=== PATIENT | female | born 1980 | race Caucasian/White ===

== ENCOUNTER 2024-10-17 13:30 | Emergency (ER) | payer OTHER, MEDICAID, SELFPAY ==
--- NOTE | ~2024-10-17 | CT_ITS ---
CLINICAL INDICATION: Remote history of a fall. Left upper quadrant abdominal pain COMPARISON: . TECHNIQUE: Multiple contiguous axial images of the abdomen and pelvis were performed following the ad ministration of with 100 mL Omnipaque-350 intravenous contrast The dose-length product (DLP) was 225.83 mGy-cm. Automated exposure control and iterative reconstruction technique were employed. FINDINGS/OBSERVATIONS: Visualized lower thorax: The bilateral lung bases are clear. The heart is of normal size, without pericardial effusion. Small hiatal hernia is present. Liver: The liver demonstrates homogeneous enhancement and is not enlarged. Gallbladder and biliary system: The gallbladder is only minimally distended, and otherwise unremarkable. Pancreas: The pancreas enhances homogeneously without ductal dilatation. Spleen: The spleen enhances homogeneously and is not enlarged. Kidneys: The bilateral kidneys enhance symmetrically without hydronephrosis or renal calculi. Adrenal glands: Unremarkable. Gastrointestinal tract: Fecal stasis within the colon. Appendix: The air-filled appendix is of normal caliber (axial series, images 118 through 132) Vasculature: Unremarkable. Lymph nodes: No pathologically enlarged or morphologically suspicious lymph nodes within the retroperitoneum or at the root of the mesentery. Pelvic structures: The bladder is distended, and otherwise unremarkable. The uterus is anteverted and anteflexed. Body wall and musculoskeletal: Small fat-containing umbilical hernia. No significant degenerative disease within the lower thoracic or lumbosacral spine. IMPRESSION: No acute pathology within the lower chest, abdomen or pelvis, as detailed above. Reviewed, dictated and finalized at location A. IMPRESSION: No acute pathology within the lower chest, abdomen or pelvis, as detailed above .
--- NOTE | ~2024-10-17 | XR_ITS ---
XR chest 2V Ordering provider: Rhett Patino MD History: 43 years Female with . mid sternal chest pain . Comparison: None. FINDINGS: MEDIASTINUM: The cardiac silhouette is not enlarged. LUNGS: No infiltrates, effusions or pneumothorax. OTHER: No free air under the diaphragm. Degenerative changes of the spine. IMPRESSION: No acute cardiopulmonary pathology. Reviewed, dictated and finalized at location A.
[2024-10-17 13:37] VITALS: BP 105/74; PULSE 70; RESP 14; TEMP 36.6; O2SAT 99
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
--- OUTSIDE RECORDS SUMMARY | 2024-10-17 13:46 | XMS_ITS | Data Portability ---
Author Organization [facility], Main Office Address [address] [place] [address] Care Team Providers Care Head Of Sales Promotion Name Role Phone HARI RADFORD Primary Care Provider Assessment Encounter Date Assessment Date Assessment LastModified by Organization Details LastModified Time 07/20/2022 07/20/2022 41 yo F with - VIT D DEFICIENCY, improved - SCHIZOPHRENIA - BIPOLAR DISORDER - SMOKER CXR: 07/08/22. Annual labs: 07/08/22. D/w pt in detail about her findings, recent labs & imagines and further plan of care. Cont meds as per Psychiatrist. Diet and exercise explained. Currently smoking about 0.5 ppd. Encouraged pt to cut down and quit it. Cont f/u with Psych at [place], [place] as per schedule. Cont f/u with Gyne as per schedule. Educated pt about alarming symptoms to monitor at home. Pt has tried Chantix and Wellbutrin in the past. HM: WWE - 2020, normal as per pt. Cont f/u with Gyne as per schedule. Mammo - Never. No FH of CA. Flu - Pt declined. Tdap, Gardasil - At pharmacy/HD. F/u in 3-4 months. Annual labs in 06/24. [email or web address] Not available 07/20/2022 09:26:24 08/13/2024 08/13/2024 43 yo F with - WELL ADULT VISIT - VIT D DEFICIENCY, improved - SCHIZOPHRENIA - BIPOLAR DISORDER - SMOKER CXR: 07/08/22. Annual labs: 07/08/22. D/w pt in detail about her findings, recent labs & imagines and further plan of care. Will do routine labs, cxr. Pt declined for HCG. Cont meds as per Psychiatrist. Diet and exercise explained. Cont f/u with Psych at [place], [place] as per schedule. Cont f/u with Gyne as per schedule. Educated pt about alarming symptoms to monitor at home. Pt has tried Chantix and Wellbutrin in the past. HM: 2020, normal as per pt. 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 Mammo - Never. No FH of CA. Flu - Pt declined. Tdap, Gardasil - At pharmacy/HD. F/u in 2-3 weeks. Mammo order on next visit. Annual labs in 08/24. [email or web address] Not available 08/13/2024 14:53:25 10/16/2024 10/16/2024 43 yo F with - [...] exercise explained. Cont f/u with Psych at [place], [place] as per schedule. Cont f/u with Gyne as per schedule. Educated pt about alarming symptoms to monitor at home. Pt has tried Chantix and Wellbutrin in the past. HM: 2020, normal as per pt. 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 Mammo - Never. Ordered. Flu - Pt declined. Tdap, Gardasil - At pharmacy/HD. F/u in 1-2 weeks. Annual labs in 08/24. [email or web address] Not available 10/16/2024 14:56:35 Plan of Treatment Reminders Order Date Submit Date Provider Last Modified By Organization Details Last Modified Time Details Appointments Any 15 2024 03:45P Santosh Radford MD Not available Not available Not available Lab HbA1c (hemoglob in A1c), blood 2024 025 [email or web address] [facility] (Lab), [address] [place], [address], 08/20/2024 16:04:15 vitamin D, 25-hydrox y, total, serum [address] (Lab), [address] [place], [address], 08/20/2024 16:04:15 CBC w/ auto diff 2024 025 [facility] (Lab), [address] [place], [address], 08/20/2024 14:41:25 CMP, serum or plasma 2024 025 [facility] (Lab), [address] [place], [address], 08/20/2024 14:51:41 lipid panel, serum 2024 025 [facility] (Lab), [address] [place], [address], 08/20/2024 14:51:45 TSH, serum, reflex free T4 [address] (Lab), [address] [place], [address], 08/20/2024 16:04:14 urinalysi s complete, reflex culture 2024 025 [email or web address] [facility] (Lab), [address] [place], [address], 08/21/2024 09:34:32 Referral None recorded. Procedures None recorded. Surgeries None recorded. Imaging XR, knee, 3 view [address] [facility], [address], [address], 10/16/2024 14:54:00 XR, ribs, unilatera l, w/ PA chest [address], [address], [place], [address], 10/16/2024 14:54:00 MAMMO, screening , bilateral - Please call patient to schedule. 2024 025 [facility], [address], [facility] [address], [place], [address], 10/16/2024 16:15:28 XR, abdomen, 2 view [address], [address], [place], [address], 10/16/2024 14:54:00 XR, chest, 2 view [address], [address], [place], [address], 08/29/2024 10:27:48 Medication Orders ketorolac 30 mg/mL (1 mL) injection solution 2024 025 [email or web address] Not available 10/16/2024 14:56:38 prednison e 10 mg tablet 2024 025 [facility] [address] [place], [address], 10/16/2024 14:46:34 nicotine 21 mg/24 hr daily transderm al patch 2024 025 [facility] [address], [address] [place], [address], 10/16/2024 14:46:33 nicotine 21 mg/24 hr daily transderm al patch 2024 025 [facility] [address], [address] [place], [address], 08/13/2024 14:24:27 Patient TargetsNo targets recorded. Patient InstructionsNo instructions recorded. Reason for Referral None Reported. Results Created Date Observation Date Name Description Value Unit Range Abnormal Flag Note LastModifiedBy Organization Detail LastModifiedTime 07/09/19 23 07/08/2022 URINA LYSIS COMPL ETE/I RIS W/RFX color LIGHT- YELLOW Not Available [facility] (Lab) [address] [place], [address], 07/08/2022 14:33:13 07/09/19 23 07/08/2022 URINA LYSIS COMPL ETE/I RIS W/RFX appear TURBID abnormal Not Available [facility] (Lab) [address] [place], [address], 07/08/2022 14:33:13 07/09/19 23 07/08/2022 URINA LYSIS COMPL ETE/I RIS W/RFX specific gravity 1.012 1.001- 1.030 Not Available [facility] (Lab) [address] [place], [address], 07/08/2022 14:33:13 07/09/19 23 07/08/2022 URINA LYSIS COMPL ETE/I RIS W/RFX pH 6.0 pH_un its 5.0-9. 0 Not Available [facility] (Lab) [address] [place], [address], 07/08/2022 14:33:13 07/09/19 23 07/08/2022 URINA LYSIS COMPL ETE/I RIS W/RFX leukocytes NEGATI VE gisella/u L negati ve- Not Available [facility] (Lab) [address] [place], [address], 07/08/2022 14:33:13 07/09/19 23 07/08/2022 URINA LYSIS COMPL ETE/I RIS W/RFX nitrite NEGATI VE negati ve- Not Available [facility] (Lab) [address] [place], [address], 07/08/2022 14:33:13 07/09/19 23 07/08/2022 URINA LYSIS COMPL ETE/I RIS W/RFX protein NEGATI VE mg/dL negati ve- Not Available [facility] (Lab) [address] [place], [address], 07/08/2022 14:33:13 07/09/19 23 07/08/2022 URINA LYSIS COMPL ETE/I RIS W/RFX glucose NORMAL mg/dL normal - Not Available [facility] (Lab) [address] [place], [address], 07/08/2022 14:33:13 07/09/19 23 07/08/2022 URINA LYSIS COMPL ETE/I RIS W/RFX ketones NEGATI VE mg/dL negati ve- Not Available [facility] (Lab) [address] [place], [address], 07/08/2022 14:33:13 07/09/19 23 07/08/2022 URINA LYSIS COMPL ETE/I RIS W/RFX urobilinogen NORMAL mg/dL normal - Not Available [facility] (Lab) [address] [place], [address], 07/08/2022 14:33:13 07/09/19 23 07/08/2022 URINA LYSIS COMPL ETE/I RIS W/RFX bilirubin NEGATI VE mg/dL negati ve- Not Available [facility] (Lab) [address] [place], [address], 07/08/2022 14:33:13 07/09/19 23 07/08/2022 URINA LYSIS COMPL ETE/I RIS W/RFX blood NEGATI VE mg/dL negati ve- Not Available [facility] (Lab) [address] [place], [address], 07/08/2022 14:33:13 07/09/19 23 07/08/2022 URINA LYSIS COMPL ETE/I RIS W/RFX white blood cells 0-8 /i??h pfi?? 0-8 Not Available [facility] (Lab) [address] [place], [address], 07/08/2022 14:33:13 07/09/19 23 07/08/2022 URINA LYSIS COMPL ETE/I RIS W/RFX red blood cells 0-4 /i??h pfi?? 0-4 Not Available [facility] (Lab) [address] [place], [address], 07/08/2022 14:33:13 07/09/19 23 07/08/2022 URINA LYSIS COMPL ETE/I RIS W/RFX bacteria OCCASI ONAL abnormal Not Available [facility] (Lab) [address] [facility] [place], [address], 07/08/2022 14:33:13 07/09/19 23 07/08/2022 URINA LYSIS COMPL ETE/I RIS W/RFX mucous FEW /i??l pfi?? abnormal Not Available [facility] (Lab) [address] [facility] [place], [address], 07/08/2022 14:33:13 07/09/19 23 07/08/2022 URINA LYSIS COMPL ETE/I RIS W/RFX squamous epithelial PACKED FIELD /i??l pfi?? abnormal Not Available [facility] (Lab) [address] [facility] [place], [address], 07/08/2022 14:33:13 07/09/19 23 07/08/2022 URINA LYSIS COMPL ETE/I RIS W/RFX hyaline cast OCCASI ONAL /i??l pfi?? none seen- abnormal Not Available [facility] (Lab) [address] [place], [address], 07/08/2022 14:33:13 07/09/19 23 07/08/2022 CBC/C OMPLE TE BLD COUNT W/DIF F white blood cells 4.9 x10'3 /uL 4.2-10 .8 Not Available [facility] (Lab) [address] [place], [address], 07/08/2022 14:34:49 07/09/19 23 07/08/2022 CBC/C OMPLE TE BLD COUNT W/DIF F red blood cells 4.21 x10'6 /uL 3.80-5 .20 Not Available [facility] (Lab) [address] [place], [address], 07/08/2022 14:34:49 07/09/19 23 07/08/2022 CBC/C OMPLE TE BLD COUNT W/DIF F hemoglobin 13.3 g/dL 12.0-1 5.6 Not Available [facility] (Lab) [address] [place], [address], 07/08/2022 14:34:49 07/09/19 23 07/08/2022 CBC/C OMPLE TE BLD COUNT W/DIF F hematocrit 40.4 % 35.7-4 5.7 Not Available [facility] (Lab) [address] [place], [address], 07/08/2022 14:34:49 07/09/19 23 07/08/2022 CBC/C OMPLE TE BLD COUNT W/DIF F mean red cell volume 96.0 fL 82.0-9 9.0 Not Available [facility] (Lab) [address] [place], [address], 07/08/2022 14:34:49 07/09/19 23 07/08/2022 CBC/C OMPLE TE BLD COUNT W/DIF F mean red cell hemoglobin 31.6 pg 27.0-3 3.0 Not Available [facility] (Lab) [address] [place], [address], 07/08/2022 14:34:49 0307/08/2022 CBC/C OMPLE TE BLD COUNT W/DIF F mean RBC HGB concentratio n 32.9 g/dL 31.0-3 6.0 Not Available [facility] (Lab) [address] [place], [address], 07/08/2022 14:34:49 07/09/19 23 07/08/2022 CBC/C OMPLE TE BLD COUNT W/DIF F red cell distribution width 12.6 % 11.8-1 5.5 Not Available [facility] (Lab) [address] [place], [address], 07/08/2022 14:34:49 07/09/1907/08/2022 CBC/C OMPLE TE BLD COUNT W/DIF F platelets 185 x10'3 /uL 150-40 0 Not Available [facility] (Lab) [address] [place], [address], 07/08/2022 14:34:49 07/09/19 23 07/08/2022 CBC/C OMPLE TE BLD COUNT W/DIF F mean platelet volume 11.0 fL 9.0-12 .4 Not Available [facility] (Lab) [address] [place], [address], 07/08/2022 14:34:49 07/09/19 23 07/08/2022 CBC/C OMPLE TE BLD COUNT W/DIF F neutrophils 54.7 % 39.0-7 2.0 Not Available [facility] (Lab) [address] [place], [address], 07/08/2022 14:34:49 07/09/1907/08/2022 CBC/C OMPLE TE BLD COUNT W/DIF F lymphocytes 31.3 % 16.0-4 7.0 Not Available [facility] (Lab) [address] [place], [address], 07/08/2022 14:34:49 03/10/20 23 07/08/2022 CBC/C OMPLE TE BLD COUNT W/DIF F monocytes 7.5 % 5.0-12 .0 Not Available [facility] (Lab) [address] [place], [address], 07/08/2022 14:34:49 07/09/19 23 07/08/2022 CBC/C OMPLE TE BLD COUNT W/DIF F eosinophils 5.7 % 1.0-7. 0 Not Available [facility] (Lab) [address] [place], [address], 07/08/2022 14:34:49 07/09/19 23 07/08/2022 CBC/C OMPLE TE BLD COUNT W/DIF F basophils 0.6 % 0.0-2. 0 Not Available [facility] (Lab) [address] [place], [address], 07/08/2022 14:34:49 07/09/19 23 07/08/2022 CBC/C OMPLE TE BLD COUNT W/DIF F immature granulocytes 0.2 % 0.00-0 .50 Not Available [facility] (Lab) [address] [place], [address], 07/08/2022 14:34:49 07/09/19 23 07/08/2022 CBC/C OMPLE TE BLD COUNT W/DIF F neutrophils, absolute count 2.69 x10'3 /uL 1.5-8. 0 Not Available [facility] (Lab) [address] [place], [address], 07/08/2022 14:34:49 07/09/19 23 07/08/2022 CBC/C OMPLE TE BLD COUNT W/DIF F lymphocytes, absolute count 1.54 x10'3 /uL 1.07-3 .43 Not Available [facility] (Lab) [address] [place], [address], 07/08/2022 14:34:49 07/09/19 23 07/08/2022 CBC/C OMPLE TE BLD COUNT W/DIF F monocytes, absolute count 0.37 x10'3 /uL 0.29-0 .99 Not Available [facility] (Lab) [address] [place], [address], 07/08/2022 14:34:49 07/09/19 23 07/08/2022 CBC/C OMPLE TE BLD COUNT W/DIF F eosinophils, absolute count 0.28 x10'3 /uL 0.02-0 .53 Not Available [facility] (Lab) [address] [place], [address], 07/08/2022 14:34:49 07/09/19 23 07/08/2022 CBC/C OMPLE TE BLD COUNT W/DIF F basophils, absolute count 0.03 x10'3 /uL 0.01-0 .08 Not Available [facility] (Lab) [address] [place], [address], 07/08/2022 14:34:49 07/09/19 23 07/08/2022 CBC/C OMPLE TE BLD COUNT W/DIF F immature granulocytes ,absolute 0.01 x10'3 /uL 0.00-0 .05 Not Available [facility] (Lab) [address] [place], [address], 07/08/2022 14:34:49 07/09/19 23 07/08/2022 CBC/C OMPLE TE BLD COUNT W/DIF F nucleated red blood cells 0.0 % -0 Not Available [facility] (Lab) [address] [place], [address], 07/08/2022 14:34:49 07/09/19 23 07/08/2022 CBC/C OMPLE TE BLD COUNT W/DIF F NRBC# 0.00 x10'3 /uL Not Available [facility] (Lab) [address] [place], [address], 07/08/2022 14:34:49 07/09/1907/08/2022 HEMOG LOBIN A1C HA1C 5.0 % 4.0-6. 0 Diabe syl Scree aurea Crite michelle: <5.7% Consi stent with absen ce of diabe syl 5.7-6 .4% Consi stent with incre ased risk for diabe syl (pred iabet es) >OR=6 .5% Consi stent with diabe syl REFER ENCE: Diabe syl Care 2016, 39( ppl.1 ):s13 -s22 Not Available [facility] (Lab) [address] [place], [address], 07/08/2022 15:14:37 07/09/19 23 07/08/2022 COMPR EHENS ARMANDO METAB OLIC PANEL sodium 136 mmol/ L 137-14 5 low Not Available [facility] (Lab) [address] [place], [address], 07/08/2022 16:17:39 07/09/19 23 07/08/2022 COMPR EHENS ARMANDO METAB OLIC PANEL potassium 3.8 mmol/ L 3.5-5. 1 Not Available [facility] (Lab) [address] [place], [address], 07/08/2022 16:17:39 07/09/19 23 07/08/2022 COMPR EHENS ARMANDO METAB OLIC PANEL chloride 105 mmol/ L 98-107 Not Available [facility] (Lab) [address] [place], [address], 07/08/2022 16:17:39 07/09/19 23 07/08/2022 COMPR EHENS ARMANDO METAB OLIC PANEL carbon dioxide 25 mmol/ L 22-30 Not Available [facility] (Lab) [address] [place], [address], 07/08/2022 16:17:39 07/09/19 23 07/08/2022 COMPR EHENS ARMANDO METAB OLIC PANEL anion gap 9.8 mmol/ L 14-22 low Not Available [facility] (Lab) [address] [place], [address], 07/08/2022 16:17:39 07/09/19 23 07/08/2022 COMPR EHENS ARMANDO METAB OLIC PANEL glucose 93 mg/dL 70-99 Not Available [facility] (Lab) [address] [place], [address], 07/08/2022 16:17:39 07/09/19 23 07/08/2022 COMPR EHENS ARMANDO METAB OLIC PANEL BUN 10 mg/dL 8-19 Not Available [facility] (Lab) [address] [place], [address], 07/08/2022 16:17:39 07/09/19 23 07/08/2022 COMPR EHENS ARMANDO METAB OLIC PANEL creatinine 0.88 mg/dL 0.66-1 .25 Not Available [facility] (Lab) [address] [place], [address], 07/08/2022 16:17:39 07/09/19 23 07/08/2022 COMPR EHENS ARMANDO METAB OLIC PANEL GFR >60 Refer ence Range : Creola ge GFR Healt hy Adult : >60 mL/mi n/1.7 3 m2 Chron ic Kidne y Disea se: 15-60 mL/mi n/1.7 3 m2 Kidne y Failu re: <15/m L/min /1.73 m2 www.n iddk. nih.g ov The MDRD study equat ion has not been valid ated in child og <18 years of age; pregn ant women ; the elder ly >85 years of age; or in some racia l or ethni c subgr oups, such as Hispa nics. Outsi de the valid ated latoya eters , estim ated GFR is less accur ate, requi ring clini nita judgm ent on a case- by-ca se basis . Clini nita inter preta tion for other races and ages must be made by the clini odalys. The MDRD study equat ion has not been valid ated for the evalu ation of serum creat inine relat ed to nutri ro l statu s or medic ation usage . For perso ns <18 years of age, a pedia tric GFR calcu lator is avail able on the [facility] websi te: https :[email or web address] w.freddie coley.o rg/pr ofess ional s/kdo qi/gf r_cal culat or Not Available [facility] (Lab) [address] [place], [address], 07/08/2022 16:17:39 07/09/19 23 07/08/2022 COMPR EHENS ARMANDO METAB OLIC PANEL alkaline phosphatase 48 U/L 38-126 Not Available [facility] (Lab) [address] [place], [address], 07/08/2022 16:17:39 07/09/19 23 07/08/2022 COMPR EHENS ARMANDO METAB OLIC PANEL alanine aminotransfe rase 19 U/L 0-35 Not Available [facility] (Lab) [address] [place], [address], 07/08/2022 16:17:39 07/09/19 23 07/08/2022 COMPR EHENS ARMANDO METAB OLIC PANEL aspartate aminotransfe rase 26 U/L 15-37 Not Available [facility] (Lab) [address] [place], [address], 07/08/2022 16:17:39 07/09/19 23 07/08/2022 COMPR EHENS ARMANDO METAB OLIC PANEL bilirubin, total 0.60 mg/dL 0.20-1 .30 Not Available [facility] (Lab) [address] [place], [address], 07/08/2022 16:17:39 07/09/19 23 07/08/2022 COMPR EHENS ARMANDO METAB OLIC PANEL calcium 9.5 mg/dL 8.4-10 .2 Not Available [facility] (Lab) [address] [place], [address], 07/08/2022 16:17:39 07/09/19 23 07/08/2022 COMPR EHENS ARMANDO METAB OLIC PANEL total protein 6.9 g/dL 6.3-8. 2 Not Available [facility] (Lab) [address] [place], [address], 07/08/2022 16:17:39 07/09/19 23 07/08/2022 COMPR EHENS ARMANDO METAB OLIC PANEL albumin 4.3 g/dL 3.4-5. 0 Not Available [facility] (Lab) [address] [place], [address], 07/08/2022 16:17:39 07/09/19 23 07/08/2022 COMPR EHENS ARMANDO METAB OLIC PANEL globulin 2.6 g/dL 2.6-4. 2 Not Available [facility] (Lab) [address] [place], [address], 07/08/2022 16:17:39 07/09/19 23 07/08/2022 COMPR EHENS ARMANDO METAB OLIC PANEL A/G ratio 1.7 ratio 1.0-2. 0 Not Available [facility] (Lab) [address] [place], [address], 07/08/2022 16:17:39 07/09/19 23 07/08/2022 LIPID PANEL cholesterol 179 mg/dL 140-19 9 NIH POLLY NSUS RECOM MENDA TION FOR SARAY STERO L: ADULT CHILD LOW RISK: <200 <170 BORDE RLINE : <200- 239 ----- HIGH RISK: >240 >200 Not Available [facility] (Lab) [address] [place], [address], 07/08/2022 16:21:50 07/09/19 23 07/08/2022 LIPID PANEL triglyceride s 58 mg/dL 0-150 NIH POLLY NSUS REPOR T RECOM MENDA TION FOR TRIGL YCERI JACLYN: ADULT CHILD LOW RISK: <150 ----- BODER LINE: 150-1 99 ----- HIGH RISK: >200 ----- Not Available [facility] (Lab) [address] [place], [address], 07/08/2022 16:21:50 07/09/19 23 07/08/2022 LIPID PANEL HDL cholesterol 70 mg/dL 40- Not Available [facility] (Lab) [address] [place], [address], 07/08/2022 16:21:50 07/09/19 23 07/08/2022 LIPID PANEL LDL cholesterol, calculated 97 mg/dL 0-130 NIH POLLY NSUS REPOR T RECOM MENDA TIONS FOR LDL: ADULT CHILD LOW RISK <130 <110 (OPTI MAL LDL) <100 ----- BORDE RLINE : 130-1 59 ----- HIGH RISK: >160 >130 A TRIGL YCERI DE RESUL T >400 INVAL IDATE S THE CALCU LATIO N FOR LDL FRACT IONAT ION - THE LDL RESUL T WILL NOT BE REPOR FRANCIA. Not Available [facility] (Lab) [address] [place], [address], 07/08/2022 16:21:50 07/09/19 23 07/08/2022 VITAM IN D 25-HY DROXY [id number] 34.5 NG/mL 30-100 Vitam in D Statu s: Defic ient: <20 ng/mL Insuf ficie nt: 20-29 ng/mL Suffi cient : 30-10 0 ng/mL Not Available [facility] (Lab) [address] [place], [address], 07/08/2022 16:27:18 07/09/19 23 07/08/2022 TSH W/REF TARYN FT4 TSH with reflex free T4 2.070 uIU/m L 0.465- 4.680 Not Available [facility] (Lab) [address] [place], [address], 07/08/2022 16:55:58 08/21/19 25 08/20/2024 CBC/C OMPLE TE BLD COUNT W/DIF F white blood cells 5.3 x10'3 /uL 4.2-10 .8 Not Available [facility] (Lab) [address] [place], [address], 08/20/2024 14:41:25 08/21/19 25 08/20/2024 CBC/C OMPLE TE BLD COUNT W/DIF F red blood cells 4.09 x10'6 /uL 3.80-5 .20 Not Available [facility] (Lab) [address] [place], [address], 08/20/2024 14:41:25 08/21/19 25 08/20/2024 CBC/C OMPLE TE BLD COUNT W/DIF F hemoglobin 12.4 g/dL 12.0-1 5.6 Not Available [facility] (Lab) [address] [place], [address], 08/20/2024 14:41:25 08/21/19 25 08/20/2024 CBC/C OMPLE TE BLD COUNT W/DIF F hematocrit 38.8 % 35.7-4 5.7 Not Available [facility] (Lab) [address] [place], [address], 08/20/2024 14:41:25 08/21/19 25 08/20/2024 CBC/C OMPLE TE BLD COUNT W/DIF F mean red cell volume 94.9 fL 82.0-9 9.0 Not Available [facility] (Lab) [address] [place], [address], 08/20/2024 14:41:25 08/21/19 25 08/20/2024 CBC/C OMPLE TE BLD COUNT W/DIF F mean red cell hemoglobin 30.3 pg 27.0-3 3.0 Not Available [facility] (Lab) [address] [place], [address], 08/20/2024 14:41:25 08/21/19 25 08/20/2024 CBC/C OMPLE TE BLD COUNT W/DIF F mean RBC HGB concentratio n 32.0 g/dL 31.0-3 6.0 Not Available [facility] (Lab) [address] [facility] [place] [place], [address], 08/20/2024 14:41:25 08/21/19 25 08/20/2024 CBC/C OMPLE TE BLD COUNT W/DIF F red cell distribution width 12.8 % 11.8-1 5.5 Not Available [facility] (Lab) [address] [place], [address], 08/20/2024 14:41:25 08/21/19 25 08/20/2024 CBC/C OMPLE TE BLD COUNT W/DIF F platelets 231 x10'3 /uL 150-40 0 Not Available [facility] (Lab) [address] [place], [address], 08/20/2024 14:41:25 08/21/19 25 08/20/2024 CBC/C OMPLE TE BLD COUNT W/DIF F mean platelet volume 11.2 fL 9.0-12 .4 Not Available [facility] (Lab) [address] [place], [address], 08/20/2024 14:41:25 08/21/19 25 08/20/2024 CBC/C OMPLE TE BLD COUNT W/DIF F neutrophils 64.0 % 39.0-7 2.0 Not Available [facility] (Lab) [address] [place], [address], 08/20/2024 14:41:25 08/21/19 25 08/20/2024 CBC/C OMPLE TE BLD COUNT W/DIF F lymphocytes 25.8 % 16.0-4 7.0 Not Available [facility] (Lab) [address] [place], [address], 08/20/2024 14:41:25 08/21/19 25 08/20/2024 CBC/C OMPLE TE BLD COUNT W/DIF F monocytes 6.6 % 5.0-12 .0 Not Available [facility] (Lab) [address] [place], [address], 08/20/2024 14:41:25 08/21/19 25 08/20/2024 CBC/C OMPLE TE BLD COUNT W/DIF F eosinophils 2.6 % 1.0-7. 0 Not Available [facility] (Lab) [address] [place], [address], 08/20/2024 14:41:25 08/21/19 25 08/20/2024 CBC/C OMPLE TE BLD COUNT W/DIF F basophils 0.6 % 0.0-2. 0 Not Available [facility] (Lab) [address] [place], [address], 08/20/2024 14:41:25 08/21/1908/20/2024 CBC/C OMPLE TE BLD COUNT W/DIF F immature granulocytes 0.4 % 0.00-0 .50 Not Available [facility] (Lab) [address] [place], [address], 08/20/2024 14:41:25 08/21/19 25 08/20/2024 CBC/C OMPLE TE BLD COUNT W/DIF F neutrophils, absolute count 3.42 x10'3 /uL 1.5-8. 0 Not Available [facility] (Lab) [address] [place], [address], 08/20/2024 14:41:25 08/21/19 25 08/20/2024 CBC/C OMPLE TE BLD COUNT W/DIF F lymphocytes, absolute count 1.38 x10'3 /uL 1.07-3 .43 Not Available [facility] (Lab) [address] [place], [address], 08/20/2024 14:41:25 08/21/19 25 08/20/2024 CBC/C OMPLE TE BLD COUNT W/DIF F monocytes, absolute count 0.35 x10'3 /uL 0.29-0 .99 Not Available [facility] (Lab) [address] [place], [address], 08/20/2024 14:41:25 08/21/19 25 08/20/2024 CBC/C OMPLE TE BLD COUNT W/DIF F eosinophils, absolute count 0.14 x10'3 /uL 0.02-0 .53 Not Available [facility] (Lab) [address] [place], [address], 08/20/2024 14:41:25 08/21/19 25 08/20/2024 CBC/C OMPLE TE BLD COUNT W/DIF F basophils, absolute count 0.03 x10'3 /uL 0.01-0 .08 Not Available [facility] (Lab) [address] [place], [address], 08/20/2024 14:41:25 08/21/19 25 08/20/2024 CBC/C OMPLE TE BLD COUNT W/DIF F immature granulocytes ,absolute 0.02 x10'3 /uL 0.00-0 .05 Not Available [facility] (Lab) [address] [place], [address], 08/20/2024 14:41:25 08/21/19 25 08/20/2024 CBC/C OMPLE TE BLD COUNT W/DIF F nucleated red blood cells 0.0 % -0 Not Available [facility] (Lab) [address] [place], [address], 08/20/2024 14:41:25 08/21/19 25 08/20/2024 CBC/C OMPLE TE BLD COUNT W/DIF F NRBC# 0.00 x10'3 /uL Not Available [facility] (Lab) [address] [place], [address], 08/20/2024 14:41:25 08/21/19 25 08/20/2024 URINA LYSIS COMPL ETE/I RIS W/RFX color LIGHT- YELLOW Not Available [facility] (Lab) [address] [place], [address], 08/20/2024 14:46:10 08/21/19 25 08/20/2024 URINA LYSIS COMPL ETE/I RIS W/RFX appear TURBID abnormal Not Available [facility] (Lab) [address] [place], [address], 08/20/2024 14:46:10 08/21/19 25 08/20/2024 URINA LYSIS COMPL ETE/I RIS W/RFX specific gravity 1.010 1.001- 1.030 Not Available [facility] (Lab) [address] [place], [address], 08/20/2024 14:46:10 08/21/19 25 08/20/2024 URINA LYSIS COMPL ETE/I RIS W/RFX pH 6.0 pH_un its 5.0-9. 0 Not Available [facility] (Lab) [address] [place], [address], 08/20/2024 14:46:10 08/21/19 25 08/20/2024 URINA LYSIS COMPL ETE/I RIS W/RFX leukocytes NEGATI VE gisella/u L negati ve- Not Available [facility] (Lab) [address] [facility] [place], [address], 08/20/2024 14:46:10 08/21/19 25 08/20/2024 URINA LYSIS COMPL ETE/I RIS W/RFX nitrite NEGATI VE negati ve- Not Available [facility] (Lab) [address] [place], [address], 08/20/2024 14:46:10 08/21/19 25 08/20/2024 URINA LYSIS COMPL ETE/I RIS W/RFX protein NEGATI VE mg/dL negati ve- Not Available [facility] (Lab) [address] [place], [address], 08/20/2024 14:46:10 08/21/19 25 08/20/2024 URINA LYSIS COMPL ETE/I RIS W/RFX glucose NORMAL mg/dL normal - Not Available [facility] (Lab) [address] [place], [address], 08/20/2024 14:46:10 08/21/19 25 08/20/2024 URINA LYSIS COMPL ETE/I RIS W/RFX ketones NEGATI VE mg/dL negati ve- Not Available [facility] (Lab) [address] [place], [address], 08/20/2024 14:46:10 08/21/19 25 08/20/2024 URINA LYSIS COMPL ETE/I RIS W/RFX urobilinogen NORMAL mg/dL normal - Not Available [facility] (Lab) [address] [place], [address], 08/20/2024 14:46:10 08/21/19 25 08/20/2024 URINA LYSIS COMPL ETE/I RIS W/RFX bilirubin NEGATI VE mg/dL negati ve- Not Available [facility] (Lab) [address] [place], [address], 08/20/2024 14:46:10 08/21/19 25 08/20/2024 URINA LYSIS COMPL ETE/I RIS W/RFX blood NEGATI VE mg/dL negati ve- Not Available [facility] (Lab) [address] [place], [address], 08/20/2024 14:46:10 08/21/19 25 08/20/2024 URINA LYSIS COMPL ETE/I RIS W/RFX white blood cells 0-8 /i??h pfi?? 0-8 Not Available [facility] (Lab) [address] [place], [address], 08/20/2024 14:46:10 08/21/19 25 08/20/2024 URINA LYSIS COMPL ETE/I RIS W/RFX red blood cells 0-4 /i??h pfi?? 0-4 Not Available [facility] (Lab) [address] [place], [address], 08/20/2024 14:46:10 08/21/19 25 08/20/2024 URINA LYSIS COMPL ETE/I RIS W/RFX bacteria OCCASI ONAL abnormal Not Available [facility] (Lab) [address] [place], [address], 08/20/2024 14:46:10 08/21/19 25 08/20/2024 URINA LYSIS COMPL ETE/I RIS W/RFX mucous OCCASI ONAL /i??l pfi?? abnormal Not Available [facility] (Lab) [address] [place], [address], 08/20/2024 14:46:10 08/21/19 25 08/20/2024 URINA LYSIS COMPL ETE/I RIS W/RFX squamous epithelial PACKED FIELD /i??l pfi?? abnormal Not Available [facility] (Lab) [address] [place], [address], 08/20/2024 14:46:10 08/21/19 25 08/20/2024 COMPR EHENS ARMANDO METAB OLIC PANEL sodium 136 mmol/ L 137-14 5 low Not Available [facility] (Lab) [address] [place], [address], 08/20/2024 14:51:41 08/21/19 25 08/20/2024 COMPR EHENS ARMANDO METAB OLIC PANEL potassium 4.2 mmol/ L 3.5-5. 1 Not Available [facility] (Lab) [address] [place], [address], 08/20/2024 14:51:41 08/21/19 25 08/20/2024 COMPR EHENS ARMANDO METAB OLIC PANEL chloride 103 mmol/ L 98-107 Not Available [facility] (Lab) [address] [place], [address], 08/20/2024 14:51:41 08/21/19 25 08/20/2024 COMPR EHENS ARMANDO METAB OLIC PANEL carbon dioxide 26 mmol/ L 22-30 Not Available [facility] (Lab) [address] [place], [address], 08/20/2024 14:51:41 08/21/19 25 08/20/2024 COMPR EHENS ARMANDO METAB OLIC PANEL anion gap 11.2 mmol/ L 14-22 low Not Available [facility] (Lab) [address] [place], [address], 08/20/2024 14:51:41 08/21/19 25 08/20/2024 COMPR EHENS ARMANDO METAB OLIC PANEL glucose 98 mg/dL 70-99 Not Available [facility] (Lab) [address] [place], [address], 08/20/2024 14:51:41 08/21/19 25 08/20/2024 COMPR EHENS ARMANDO METAB OLIC PANEL BUN 12 mg/dL 8-19 Not Available [facility] (Lab) [address] [place], [address], 08/20/2024 14:51:41 08/21/1908/20/2024 COMPR EHENS ARMANDO METAB OLIC PANEL creatinine 0.79 mg/dL 0.66-1 .25 Not Available [facility] (Lab) [address] [place], [address], 08/20/2024 14:51:41 08/21/19 25 08/20/2024 COMPR EHENS ARMANDO METAB OLIC PANEL GFR >60 Refer ence Range : Creola ge GFR Healt hy Adult : >60 mL/mi n/1.7 3 m2 Chron ic Kidne y Disea se: 15-60 mL/mi n/1.7 3 m2 Kidne y Failu re: <15/m L/min /1.73 m2 www.n iddk. nih.g ov The MDRD study equat ion has not been valid ated in child og <18 years of age; pregn ant women ; the elder ly >85 years of age; or in some racia l or ethni c subgr oups, such as Histn nics. Outsi de the valid ated latoya eters , estim ated GFR is less accur ate, requi ring clini nita judgm ent on a case- by-ca se basis . Clini nita inter preta tion for other races and ages must be made by the clini odalys. The MDRD study equat ion has not been valid ated for the evalu ation of serum creat inine relat ed to nutri ro l statu s or medic ation usage . For perso ns <18 years of age, a pedia tric GFR calcu lator is avail able on the NKF websi te: https ://valerie hernandez.richardson arias/kamlesh cruzal s/kdo qi/gf r_cal culat or Not Available [facility] (Lab) [address] [place], [address], 08/20/2024 14:51:41 08/21/19 25 08/20/2024 COMPR EHENS ARMANDO METAB OLIC PANEL alkaline phosphatase 63 U/L 38-126 Not Available [facility] (Lab) [address] [place], [address], 08/20/2024 14:51:41 08/21/19 25 08/20/2024 COMPR EHENS ARMANDO METAB OLIC PANEL alanine aminotransfe rase 14 U/L 0-35 Not Available [facility] (Lab) [address] [place], [address], 08/20/2024 14:51:41 08/21/19 25 08/20/2024 COMPR EHENS ARMANDO METAB OLIC PANEL aspartate aminotransfe rase 23 U/L 15-37 Not Available [facility] (Lab) [address] [place], [address], 08/20/2024 14:51:41 08/21/19 25 08/20/2024 COMPR EHENS ARMANDO METAB OLIC PANEL bilirubin, total 0.80 mg/dL 0.20-1 .30 Not Available [facility] (Lab) [address] [place], [address], 08/20/2024 14:51:41 08/21/19 25 08/20/2024 COMPR EHENS ARMANDO METAB OLIC PANEL calcium 9.8 mg/dL 8.4-10 .2 Not Available [facility] (Lab) [address] [place], [address], 08/20/2024 14:51:41 08/21/19 25 08/20/2024 COMPR EHENS ARMANDO METAB OLIC PANEL total protein 7.2 g/dL 6.3-8. 2 Not Available [facility] (Lab) [address] [place], [address], 08/20/2024 14:51:41 08/21/19 25 08/20/2024 COMPR EHENS ARMANDO METAB OLIC PANEL albumin 4.8 g/dL 3.4-5. 0 Not Available [facility] (Lab) [address] [place], [address], 08/20/2024 14:51:41 08/21/19 25 08/20/2024 COMPR EHENS ARMANDO METAB OLIC PANEL globulin 2.4 g/dL 2.6-4. 2 low Not Available [facility] (Lab) [address] [place], [address], 08/20/2024 14:51:41 08/21/19 25 08/20/2024 COMPR EHENS ARMANDO METAB OLIC PANEL A/G ratio 2.0 ratio 1.0-2. 0 Not Available [facility] (Lab) [address] [place], [address], 08/20/2024 14:51:41 08/21/19 25 08/20/2024 LIPID PANEL cholesterol 195 mg/dL 140-19 9 NIH POLLY NSUS RECOM MENDA TION FOR SARAY STERO L: ADULT CHILD LOW RISK: <200 <170 BORDE RLINE : <200- 239 ----- HIGH RISK: >240 >200 Not Available [facility] (Lab) [address] [place], [address], 08/20/2024 14:51:45 08/21/19 25 08/20/2024 LIPID PANEL triglyceride s 68 mg/dL 0-150 NIH POLLY NSUS REPOR T RECOM MENDA TION FOR TRIGL YCERI JACLYN: ADULT CHILD LOW RISK: <150 ----- BODER LINE: 150-1 99 ----- HIGH RISK: >200 ----- Not Available [facility] (Lab) [address] [place], [address], 08/20/2024 14:51:45 08/21/19 25 08/20/2024 LIPID PANEL HDL cholesterol 83 mg/dL 40- Not Available [facility] (Lab) [address] [place], [address], 08/20/2024 14:51:45 08/21/19 25 08/20/2024 LIPID PANEL LDL cholesterol, calculated 98 mg/dL 0-130 NIH POLLY NSUS REPOR T RECOM MENDA TIONS FOR LDL: ADULT CHILD LOW RISK <130 <110 (OPTI MAL LDL) <100 ----- BORDE RLINE : 130-1 59 ----- HIGH RISK: >160 >130 A TRIGL YCERI DE RESUL T >400 INVAL IDATE S THE CALCU LATIO N FOR LDL FRACT IONAT ION - THE LDL RESUL T WILL NOT BE REPOR FRANCIA. Not Available [facility] (Lab) [address] [place], [address], 08/20/2024 14:51:45 08/21/19 25 08/20/2024 VITAM IN D 25-HY DROXY vd25oh 41.4 NG/mL 30-100 Vitam in D Statu s: Defic ient: <20 ng/mL Insuf ficie nt: 20-29 ng/mL Suffi cient : 30-10 0 ng/mL Not Available [facility] (Lab) [address] [place], [address], 08/20/2024 15:17:04 08/21/19 25 08/20/2024 TSH W/REF TARYN FT4 TSH with reflex free T4 1.380 uIU/m L 0.465- 4.680 Not Available [facility] (Lab) [address] [place], [address], 08/20/2024 15:28:30 08/21/19 25 08/20/2024 HEMOG LOBIN A1C HA1C 5.3 % 4.0-6. 0 Diabe syl Scree aurea Crite michelle: <5.7% Consi stent with absen ce of diabe syl 5.7-6 .4% Consi stent with incre ased risk for diabe syl (pred iabet es) >OR=6 .5% Consi stent with diabe syl REFER ENCE: Diabe syl Care 2016, 39(Fonseca ppl.1 ):s13 -s22 Not Available [facility] (Lab) [address] [place], [address], 08/20/2024 19:03:08 07/09/19 23 XR, chest , 2 [facility] [address] [facility] [place] [address] Patien t Name: SELVIN MARINA Access ion #: [id number] Sex: F : 1980 8 Locati on: RA2 Attend ing Physic glenna: ENOC RADFORD Orderi ng Physic glenna: ENOC RADFORD Exam Date: 8:47 AM Exam Name: XR CHEST 2V Admitt ing Diagno sis(es ): RADIOL OGY REPORT - FINAL EXAM: XR CHEST 2V HISTOR Y: ex smoker COMPAR CARY: None. TECHNI QUE: Two views of the chest were perfor med. FINDIN GS: No pneumo thorax , consol idativ e infilt rates, pleura l effusi ons, or pulmon lukas edema. The heart is not enlarg ed. Mild degene rative change s noted throug hout the thorac ic spine. IMPRES POOJA: Unrema rkable 2 view chest. Page 1 of 2 [facility] Patien t Name: SELVIN MARINA Access ion #: [id number] Sex: F : 1980 8 Exam Date: 8:47 AM Exam Name: XR CHEST 2V Admitt ing Diagno sis(es ): Create d and electr onical ly signed by: Tom mahmood MD Signed Date: 9:59 AM (CT) Dictat ed by: Tom mahmood MD DD: 9:59 AM (CT) DT: 9:59 AM (CT) Page 2 of 2 [email or web address] [facility] (Imaging) [address] [place], [address], 07/20/2022 09:22:00 Result Notes Documentation Provider Name and Address Organization Details Recorded Time Xr, Chest, 2 View : [facility] [address] [place] [address] Patient Name: SELVIN MARINA Sex: F : 1980 Location: [facility] Attending Physician: HARI RADFORD Ordering Physician: HARI RADFORD Exam Date: 07/08/2022 8:47 AM Exam Name: XR CHEST 2V Admitting Diagnosis(es): RADIOLOGY REPORT - FINAL EXAM: XR CHEST 2V HISTORY: ex smoker COMPARISON: None. TECHNIQUE: Two views of the chest were performed. FINDINGS: No pneumothorax, consolidative infiltrates, pleural effusions, or pulmonary edema. The heart is not enlarged. Mild degenerative changes noted throughout the thoracic spine. IMPRESSION: Unremarkable 2 view chest. Page 1 of 2 [facility] Patient Name: SELVIN MARINA Sex: F : 1980 Exam Date: 07/08/2022 8:47 AM Exam Name: XR CHEST 2V Admitting Diagnosis(es): Created and electronically signed by: Tom Bernard MD Signed Date: 07/08/2022 9:59 AM (CT) Dictated by: Tom Bernard MD (CT) (CT) Page 2 of 2 Hari Radford MD [address] [facility] [address], [address], [place] - [employer] [facility] 07/20/2022 09:22:00 Problems Name Problem SNOMED Code Status Onset Date Resolution Date Notes Provider Name and Address Organization Details Recorded Time Bipolar disorder 74303591 Active 2022 Not Available [employer] 3 01:47:53 Vitamin D deficiency 01991438 Active 2022 Not Available [employer] 3 01:47:54 Schizophreni a 94602905 Active 2022 Not Available [employer] 3 01:47:54 Smoker 84954746 Active 2022 Not Available [facility] 3 01:47:54 Cigarette smoker 17706556 Active 2024 Hari Radford MD [address], [place], [address] , [employer] 5 14:23:14 Rib pain 003689533 Active 2024 Hari Radford MD [address], [place], [address] , [employer] 5 14:44:01 Pain of knee region 9224850795 Active 2024 Hari Radford MD [address], [place], [address] , [employer] 5 14:44:19 Abdominal discomfort 53823563 Active 2024 Hari Radford MD [address], [place], [address] , [employer] 5 14:45:10 Problem Notes None recorded. Procedures Surgical History Date Name Laterality Status Provider Name and Address Organization Details Recorded Time 5 Smoking Cessation completed Hari Radford MD [address], [place], [address], [employer] 10/16/2024 14:55:46 5 Smoking Cessation completed Hari Radford MD [address], [place], [address], [employer] 08/13/2024 14:52:43 Biopsy completed Not Available [facility] 06/2022 01:47:42 Imaging Results [...] Available Not Available Vitals Date Recorded Body mass index (BMI) Body height Oxygen saturation Oxygen saturation in Arterial blood by Pulse oximetry Heart rate Respiratory rate Body temperature Body weight Systolic blood pressure Diastolic blood pressure Provider Name and Address Organization Details Last Updated DateTime 3 22.6 kg/m2 163.83 cm 99 % 99 % 68 /min 16 /min 98.4 [degF] 22238.3 8 g 102 mm[Hg] 64 mm[Hg] Not Available [facility] 3 01:47:46 Date Recorded Body height Body mass index (BMI) Body weight Body temperature Heart rate Oxygen saturation Oxygen saturation in Arterial blood by Pulse oximetry Systolic blood pressure Diastolic blood pressure Provider Name and Address Organization Details Last Updated DateTime 3 163.83 cm 22.8 kg/m2 01357.9 7 g 97.3 [degF] 69 /min 100 % 100 % 98 mm[Hg] 64 mm[Hg] Chiqusi perez CMA [facility] [employer] 3 09:19:35 Date Recorded Heart rate Provider Name an d Address Organization Details Last Updated DateTime 08/13/2024 66 /min Santosh Bah [address] [place] [address], [address], [facility] 08/13/2024 14:18:47 Date Recorded Body height Body mass index (BMI) Body weight Body temperature Oxygen saturation Oxygen saturation in Arterial blood by Pulse oximetry Systolic blood pressure Diastolic blood pressure Provider Name and Address Organization Details Last Updated DateTime 5 163.83 cm 23.5 kg/m2 26582.3 9 g 97.9 [degF] 99 % 99 % 100 mm[Hg] 64 mm[Hg] Haley Adam RN [facility] 5 14:12:24 Date Recorded Body height Body mass index (BMI) Body weight Body temperature Oxygen saturation Oxygen saturation in Arterial blood by Pulse oximetry Heart rate Systolic blood pressure Diastolic blood pressure Provider Name and Address Organization Details Last Updated DateTime 5 163.83 cm 22.7 kg/m2 63875.1 3 g 98.6 [degF] 98 % 98 % 79 /min 120 mm[Hg] 60 mm[Hg] Haley Adam RN [facility] 14:34:00 Social History Question Answer Notes LastModified by Organization Details LastModified Time Tobacco Smoking Status Former Smoker quit 3 months ago-2024 Haley Adam RN [facility], [facility] [employer] 08/13/2024 14:17:05 Do You Have An Advance Directive? No MIGRATION.799 [id number] Information not available 06/30/2022 What Is Your Level Of Caffeine Consumption? Heavy 3 (44oz.) Sodas Per Day Diet [place] [email or web address] Information not available 08/13/2024 In The 14 Days Before Symptom Onset, Have You Had Close Contact With A Laboratory-conf irmed COVID-19 While That Case Was Ill? No MIGRATION.297 [id number] Information not available 06/30/2022 In The 14 Days Before Symptom Onset, Have You Had Close Contact With A Person Who Is Under Investigation For COVID-19 While That Person Was Ill? No MIGRATION.846 [id number] Information not available 06/30/2022 What Type Of Diet Are You Following? REGULAR Eats 400 Calories Q 4 Hrs MIGRATION.802 [id number] Information not available 06/30/2022 What Is The Highest Grade Or Level Of School You Have Completed Or The Highest Degree You Have Received? [id number] MIGRATION.892 [id number] Information not available 06/30/2022 Have There Been Any Changes To Your Family Or Social Situation? Yes Mother Intentionally Provokes Anxiety Attack MIGRATION.781 [id number] Information not available 06/30/2022 When Did You Quit Smoking? 1-5yearssincelast cigarette Quit [id number] Information not available 08/13/2024 Do You Use Insect Repellent Routinely? No MIGRATION.613 [id number] Information not available 06/30/2022 Where Do You Live? [place]House MIGRATION.065 [id number] Information not available 06/30/2022 Do You Have A Medical Power Of Field Radio Operator? Yes Asya Howe MIGRATION.452 [id number] Information not available 06/30/2022 What Is Your Current Pack Years? 10packyears [email or web address] Information not available 08/13/2024 Do You Have Any Pets? No MIGRATION.938 [id number] Information not available 06/30/2022 What Is Your Relationship Status? Single MIGRATION.534 [id number] Information not available 06/30/2022 Do You Use Your Seat Belt Or Car Seat Routinely? Yes MIGRATION.668 [id number] Information not available 06/30/2022 Do You Have Smoke And Carbon Monoxide Detectors In Your Home? Yes MIGRATION.588 1296761 Information not available 06/30/2022 At What Age Did You Start Smoking Tobacco? 37 [email or web address] Information not available 08/13/2024 Are You Passively Exposed To Smoke? No MIGRATION.407 [id number] Information not available 06/30/2022 Are There Any Smokers In Your House? No MIGRATION.668 [id number] Information not available 06/30/2022 How Much Tobacco Do You Smoke? 1 PPD [email or web address] Information not available 08/13/2024 Do You Use Sunscreen Routinely? No MIGRATION.115 [id number] Information not available 06/30/2022 How Many Years Have You Smoked Tobacco? 6 [email or web address] Information not available 08/13/2024 Have You Recently Traveled Abroad? No MIGRATION.677 [id number] Information not available 06/30/2022 Do You Have Any Dietary Restrictions? No MIGRATION.126 [id number] Information not available 06/30/2022 How Many Years Have You Used E-cigarettes Or Vape? 1 [email or web address] Information not available 08/13/2024 Sex: Unknown Functional Status Question Answer Note LastModified by Organizat ion Details LastModified Time Do you or have you ever used any other forms of tobacco or nicotine? Yes [email or web address] Information not available 08/13/2024 What is your level of alcohol consumption? Occasional [email or web address] Information not available 08/13/2024 Do you or have you ever used smokeless tobacco? Never used smokeless tobacco [email or web address] Information not available 08/13/2024 Do you or have you ever used e-cigarettes or vape? Former user of electronic cigarettes Information not available 08/13/2024 What is your exercise level? None [id number] Information not available 06/30/2022 Mental Status Question Answer Note LastModified by Organizat ion Details LastModified Time Do you feel stressed (tense, restless, nervous, or anxious, or unable to sleep at night)? [id number] MIGRATION.[id number] 6 Information not available 06/30/2022 Family History Relationship Description Onset Age of this Age Resolved Age Notes LastModified by Organization Details LastModified Time Maternal Grandfather Multiple myeloma MIGRATION.316 [id number] Not available 06/30/2022 01:47:43 Medical History Condition Response CANCER: SPECIFY Y Gynecological History Statement/Question Response Abnormal Pap Y Date of Last Pap 06/01/2021 Date of LMP 06/21/2022 Obstetrics History GPAL:G 0 P 0 0 0 0 Past Encounters Encounter ID Performer Location Encounter Start Date Encounter Closed Date Diagnosis/Indication Diagnosis SNOMED-CT Code Diagnosis ICD10 Code Diagnosis Note [id number] Hari Radford MD [address] [address] 06/28/2022 00:00:00 06/28/2022 16:28:29 [id number] Hari Radford MD [address] [address] 07/08/2022 08:40:18 07/08/2022 09:55:43 [id number] Hari Radford MD [address] [address] 07/20/2022 09:00:50 07/20/2022 09:26:26 Vitamin D deficiency 21383448 E55.9 Schizophrenia 59308275 F 20.9 Bipolar disorder 2327203 4 F31.9 [id number] Hari Radford MD [address] [address] 08/13/2024 14:00:09 08/13/2024 14:36:33 Vitamin D deficiency 08903627 E55.9 Schizophrenia 74504761 F 20.9 Bipolar disorder 3315680 4 F31.9 Adult [facility] th examination 347398030 Z00.00 Cigarette smoker 5693872 7 F17.086 [id number] Hari Radford MD [address] [address] 10/16/2024 14:08:31 10/16/2024 14:53:59 Vitamin D deficiency 66244371 E55.9 Improved Schizophrenia 66813411 F 20.9 Bipolar disorder 2286215 4 F31.9 Cigarette smoker 6951455 7 F17.210 Screening mammography 24 378790 Z12.31 History of fall 20364100 9 Z91.81 07/2024 Rib pain 485684139 R07.8 1 Pain of knee region 1003 223521 M25.561 Abdominal discomfort 433 67132 R10.9 Health Concerns Section Related Observation LastModified by Organization Detai ls LastModified Time None Recorded Concern Status LastModified by Organization Details LastModified Time None Recorded Advance Directives Directive N: Payers Insurance Date Sequence Insurance Name Policy Number Policy Beltrán Covered Member ID Beltrán Member ID Guarantor Name 10/16/2024 1 [facility] (MEDICAID REPLACEMENT - HMO) [id number] Selvin Marina [id number] Selvin Marina 10/16/2024 2 MEDICAID[place]: [facility] PUBLIC AID Selvin Marina [id number] Selvin Marina 10/16/[address] [facility] (HMO) ILONEX Selvin Marina [id number] Selvin Marina Notes Date Note Type Note Provider Name and Address Organization Details Recorded Time 07/20/2022 text/html Pt is here for f /u on her annual labs. Doing overall well.Pt has Schizophrenia and Bipolar disorder and she is f/u with Psych at [place], [place] and is on meds by them. Doing overall well with current regimen. Denies any SI/HI. Hari Radford MD [address] [address], [place], [address], [employer] 07/20/2022 09:26:57 08/13/2024 text/html Pt is here for h er annual exam. Doing overall well. Needs to get routine labs done for her. Last visit in 07/21.Pt has Schizophrenia and Bipolar disorder and she is f/u with Psych at [place], [place] and is on meds by them. Doing overall well with current regimen. Denies any SI/HI. Hari Radford MD [address] [facility], [place], [address], [employer] 08/13/2024 14:54:27 10/16/2024 text/html FUV + ACV: S/p fall [...] and she is f/u with Psych at [place], [place] and is on meds by them. Doing overall well with current regimen. Denies any SI/HI. Hari Radford MD [address] [facility], [facility] [address], [place], [address], [place] - [employer] 10/16/2024 14:57:56 OBGyn Episode No OBEpisode recorded.
--- OUTSIDE RECORDS SUMMARY | 2024-10-17 13:47 | XMS_ITS | Clinical Summary ---
Author Organization 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 Gender Identity Not on file Sexual Orientation Not on file Plan of Treatment Health Maintenance Due Date Last Done Comments Hepatitis C Virus (HCV) Screening 1982 TdaP Immunization 1982 Hepatitis B Immunization (1 of 3 - 19+ 3-dose series) 2001 Pap Smear 12/31/2003 Cervical Cancer Screening (CCS) 2012 HPV/Cotest 2012 Discussion re Starting/Frequ ency of Mammograms 2022 Influenza Immunization (#1) 2023 SARS-COV-2 Immunization ( season) 2023 Respiratory Syncytial Virus (RSV) Immunization (Adult) (1 - 1-dose 75+ series) 2057 Meningococcal Immunization (ACWY) Aged Out No longer eligible based on patient's age to complete this topic Pneumococcal Immunization Combined Aged Out No longer eligible based on patient's age to complete this topic Rotavirus Immunization Aged Out No lo nger eligible based on patient's age to complete this topic
--- NOTE | 2024-10-17 13:52 | ECG_ITS ---
Test Date: 2024-10-17 14:01:04 Measurements Intervals [place] Rate: 65 P: 38 MA: 170 QRS: 15 QRSD: 99 T: -2 QT: 391 QTc: 408 Interpretive Statements SINUS RHYTHM DELAYED PRECORDIAL R/S TRANSITION MINIMAL Q WAVES- HIGH LATERAL LEADS BORDERLINE ST-T WAVE ABNORMALITY- INFERIOR LEADS BASELINE ARTIFACT- I, II, AVR, AVL, AVF, V2 BORDERLINE ECG No previous ECG available for comparison Electronically Signed On 10-17-2024 14:12:43 CDT by Scott Stephenson D.O.
[2024-10-17 14:00] LABS: Basophils Percent Auto 0.3 % (0.2-1.2); Eosinophils Absolute Auto 0.1 K/mm3 (0-0.3); Eosinophils Percent Auto 2.2 % (0-4.4); Hematocrit 35.8 % (37.0-47.0); Hemoglobin 11.6 g/dL (12.0-15.0); Immature Granulocyte Absolute 0.02 K/mm3 (0.00-0.031); Immature Granulocyte Percent A 0.3 % (0-0.5); Lymphocytes Absolute Auto 1.59 K/mm3 (0.9-3.2); Lymphocytes Percent Auto 24.5 % (18.3-44.2); Mean Corpuscular HGB Conc 32.4 g/dl (32-36); Mean Corpuscular Hemoglobin 30.4 pg (26-34); Mean Corpuscular Volume 93.7 fl (80-100); Mean Platelet Volume 10.3 fl (7.4-10.4); Monocytes Absolute Auto 0.5 K/mm3 (0.1-0.6); Monocytes Percent Auto 7.2 % (2.6-8.5); Neutrophils Absolute Auto 4.3 K/mm3 (1.3-6.7); Neutrophils Percent Auto 65.5 % (45.5-73.1); Platelet Count Result 228 k/mm3 (150-375); Red Blood Count 3.82 M/mm3 (4.2-5.4); Red Cell Distribution Width 12.9 % (11.5-14.5); White Blood Count 6.5 K/mm3 (4.5-10.0)
[2024-10-17 14:03] VITALS: O2SAT 98
[2024-10-17 14:14] LABS: Alanine Aminotransferase 14 U/L (6-35); Albumin Level 4.2 g/dL (3.5-5.1); Alkaline Phosphatase 54 U/L (38-126); Anion Gap 8 mmol/L (4-12); Aspartate Amino Transferase 23 U/L (14-36); Bilirubin,Total 0.6 mg/dL (0.2-1.3); Blood Urea Nitrogen 9 mg/dL (7-17); Calcium 9.2 mg/dL (8.4-10.2); Carbon Dioxide 21 mmol/L (22-30); Chloride 106 mmol/L (98-107); Estimated CRCL calculation 78 ml/min; Estimated Glomerular Filt Rate > 60; Glucose 90 mg/dL (65-110); Lipase 94 U/L (23-300); Potassium 4.2 mmol/L (3.4-5.0); Sodium 135 mmol/L (137-145); Total Protein 7.1 g/dL (6.3-8.2)
[2024-10-17 14:26] LABS: Troponin I < 0.012 ng/mL (0.000-0.034)
[2024-10-17 14:27] LABS: Prothrombin Time 13.2 Seconds (11.1-14.7)
[2024-10-17 14:28] LABS: Partial Thromboplastin Time 30.8 Seconds (22.3-36.8)
--- NOTE | 2024-10-17 14:34 | ED_ITS ---
HPI - Chest Pain General Chief Complaint: Chest Pain Stated Complaint: fall Time Seen by Provider: 10/17/24 14:02 History of Present Illness HPI narrative: Pt says she took hard fall two months ago and landed on chest and knee. Pt says she has had persistent pain but now becoming more sharp intermittently and now has some LUQ abdominal pain. Pt also has pain in right knee when walking down stairs since fall. pt denies LOC or neck pain. Related Data Allergies Allergy/AdvReac Type Severity Reaction Status Date / Time No Known Allergies Allergy Verified 10/17/24 13:43 Review of Systems 2 Review of Systems: All systems reviewed & are unremarkable except as noted in HPI and below Exam 2 Const: General: healthy appearing and no acute distress Nutritional Appearance: well nourished Orientation/consciousness: patient oriented x3 Limitations: no limitations HENMT: Head: normal to inspection Eyes: Pupils: Equal, round and reactive pupils present EOM: EOMs intact bilaterally Neck: Neck: normal visual inspection Chest: Other: tender to left anterior chest wall most of chest Resp: Effort & Inspection: normal respiratory effort Auscultation: clear to auscultation bilaterally Cardio: Rate: regular rate Rhythm: regular rhythm GI: GI Palp: Yes Soft to palpation and Yes Tenderness to palpation present (GI) (LUQ) Auscultation: normal bowel sounds Back/Spine/Pelvis: Back: no CVA tenderness Skin: General skin exam: normal color Rashes: no rashes Wounds: no wounds Neuro: General: patient oriented x3, moves all extremities, no meningeal signs, no focal motor deficits and CN's II-XI intact bilaterally Speech: n ormal speech Extrem: Other: small bruis above right patella no swelling or deformity Psych: Mental Status: mental status grossly normal Affect: normal affect Attitude: cooperative Course Vital Signs Vital signs: Vital Signs Temperature 98 F 10/17/24 13:37 Pulse Rate 70 10/17/24 13:37 Respiratory Rate 14 10/17/24 13:37 Blood Pressure 105/74 10/17/24 13:37 Pulse Oximetry 99 10/17/24 13:37 Oxygen Delivery Room Air 10/17/24 13:37 Temperature 98 F 10/17/24 13:37 Pulse Rate 70 10/17/24 13:37 Respiratory Rate 14 10/17/24 13:37 Blood Pressure 105/74 10/17/24 13:37 Pulse Oximetry 98 10/17/24 14:03 Oxygen Delivery Room Air 10/17/24 14:03 MDM - Chest Pain MDM Narrative Medical decision making narrative: Pt presents with persistent left CP and now LUQ abd pain for two months. although unlikely will get CT abd/pelvis to rule out splenic injury and will get cxr to rule out fx and get some labs. labs ct abd/pelvis neg, cxr unremarkable. Lab Data 10/17/24 13:54 10/17/24 13:54 Labs: Lab Results 10/17/24 10/17/24 Range/Units 13:54 14:44 WBC 6.5 (4.5-10.0) K/mm3 RBC 3.82 L (4.2-5.4) M/mm3 Hgb 11.6 L (12.0-15.0) g/dL Hct 35.8 L (37.0-47.0) % MCV 93.7 (80-100) fl MCH 30.4 (26-34) pg MCHC 32.4 (32-36) g/dl RDW 12.9 (11.5-14.5) % Plt Count 228 (150-375) k/mm3 MPV 10.3 (7.4-10.4) fl Immature Gran % (Auto) 0.3 (0-0.5) % Neut % (Auto) 65.5 (45.5-73.1) % Lymph % (Auto) 24.5 (18.3-44.2) % [place] % (Auto) 7.2 (2.6-8.5) % Eos % (Auto) 2.2 (0-4.4) % Baso % (Auto) 0.3 (0.2-1.2) % Lymph # (Auto) 1.59 (0.9-3.2) K/mm3 [place] # (Auto) 0.5 (0.1-0.6) K/mm3 Eos # (Auto) 0.1 (0-0.3) K/mm3 Baso # (Auto) 0.0 (0.0-0.1) K/mm3 Abs Immat Gran (auto) 0.02 (0.00-0.031) K/mm3 Absolute Neuts (auto) 4.3 (1.3-6.7) K/mm3 Absolute Nucleated RBC 0.000 (0.0-0.012) K/mm3 Nucleated RBC % 0.0 (0.0-0.2) % PT 13.2 (11.1-14.7) Seconds INR 1.0 APTT 30.8 (22.3-36.8) Seconds Sodium 135 L (137-145) mmol/L Potassium 4.2 (3.4-5.0) mmol/L Chloride 106 (98-107) mmol/L Carbon Dioxide 21 L (22-30) mmol/L Anion Gap 8 (4-12) mmol/L BUN 9 (7-17) mg/dL Creatinine 0.71 (0.7-1.0) mg/dL Estim Creat Clear Calc 78 ml/min Estimated GFR > 60 (59 - ) Glucose 90 (65-110) mg/dL Calcium 9.2 (8.4-10.2) mg/dL Total Bilirubin 0.6 (0.2-1.3) mg/dL AST 23 (14-36) U/L ALT 14 (6-35) U/L Alkaline Phosphatase 54 (38-126) U/L Troponin I < 0.012 (0.000-0.034) ng/mL Total Protein 7.1 (6.3-8.2) g/dL Albumin 4.2 (3.5-5.1) g/dL Lipase 94 (23-300) U/L POC Urine HCG, Qual Negative (Negative) Discharge Plan Discharge Clinical Impression: Anterior chest wall pain Patient Disposition: Home Condition: Stable Instructions: Antibiotic Form, Chest Wall Pain (ED) Additional Instructions: take medicines as prescribed by Dr Radford. Patient Language: Monegasque Follow-up/Referrals: Prabhakar,MD Hari [Primary Care Provider] -
[2024-10-17 14:47] LABS: BEDSIDEPREGUCG Negative (Negative)
--- OUTSIDE RECORDS SUMMARY | 2024-10-17 15:00 | XMS_ITS | Clinical Summary ---
Author Organization [facility] Address [address] [place] [address] Care Team Providers Care Florist Supplies Salesperson Name Role Phone Garfield Patrick MD Primary Care Provider [phone] Allergies Active Allergy Reactions Criticality Noted Date Comments Pollen Extract Runny Nose Low 11/23/2017 Medications hydrOXYzine 25 MG tablet 05/08/2018 Active lamoTRIgine 200 MG tablet 2 (two) times daily. 05/28/2018 Active benztropine 2 MG Tab tablet 2 mg 2 (two) times daily. 06/11/2018 Active lorazepam 1 MG tablet 2 11/21/2018 Active ziprasidone 80 MG capsule 80 mg nightly. 12/26/2018 Active busPIRone 15 MG tablet 2 (two) times daily. 05/18/2020 Active propranolol 20 MG tablet 20 mg 2 (two) times daily. 09/30/2020 Active ziprasidone 60 MG capsule 120 mg nightly. Along with 80 mg 10/31/2020 Active Active Problems Problem Noted Date Diagnosed Date Skin lesion 10/22/2020 Assessment & Plan (10/22/2020 12:05 PM CDT): Infected nodule right with forehead--start patient on Keflex 500 g 4 times daily for 7 to 10 days and mupirocin ointment twice daily until completely healed. Advised patient not to pick on the nodule and always keep it clean and dry. Signs and symptoms of worse infection discussed. 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 States 90 to 95% better. She was advised to continue omeprazole 40 mg 30 minutes before breakfast compliantly and faithfully. Continue GERD precautions. Advised to avoid any alcohol, soda, caffeine, spicy foods, concentrated juice and big fatty/heavy meals. Likewise encourage smoking cessation as well. So advised to call me if worse or go to ER. Will reevaluate patient in 6 to 8 weeks/as needed. Assessment & Plan (05/28/2020 3:13 PM CALENDER MACHINE OPERATOR): Abdominal pain possibly gastritis/PUD/gallbladder pathology/GERD. We will get ultrasound of the abdomen. For now start patient on omeprazole 40 mg 30 minutes before breakfast. Discussed GERD precautions. Advised patient to avoid any spicy foods, soda, alcohol, caffeine, concentrated juice. Likewise avoid big fatty meals. Encourage smoking cessation as well. She smokes 7 sticks a day. We will continue to monitor for now. Call me if worse or go to ER. Will reevaluate patient in 2 to 3 weeks. Impacted cerumen, left ear 01/08/2019 Assessment & Plan (01/15/2019 8:33 AM CDT): If flushing/cleaning/irrigation of left ear done. Patient tolerated procedure well complications noted. Tympanic membrane with good light reflex and landmarks. Canals not congested. Advised to discontinue Debrox otic solution. Advised to avoid using Q-tips. Assessment & Plan (01/08/2019 10:29 AM CDT): We will start patient on Debrox otic solution 3 drops 4 times a day to left ear only and return to clinic in 1 week for ear flushing/irrigation. Adverse effect/reactions discussed. Equinus deformity of both feet 02/12/2018 Plantar fasciitis 02/07/2018 Hyperlipidemia 05/26/2014 Schizophrenia ([facility]) 04/21/2014 Overview (01/07/2019): Transitioned From: Parkinsons Social History Tobacco Use Types Packs/Day Years Used Date Smoking Tobacco: Every Day Cigarettes Smokeless Tobacco: Never Comments:about 7 cigs a day Alcohol Use Standard Drinks/Week Comments No 0 (1 standard drink = 0.6 oz pur e alcohol) not drinking AUDIT-C Answer Date Recorded Frequency of Alcohol Consumption Never 12/18/2018 Average Number of Drinks Not on file 019 Frequency of Binge Drinking Not on file 11/30 PHQ-2 Answer Date Recorded PHQ-2 Score - If the patient scores above 3, please move on to questions 3-9 3 11/16/2020 Comments No Sex and Gender Information Value Date Recorded Sex Assigned at Not on file Legal Sex Female 4:14 PM CDT Gender Identity Not on file Sexual Orientation Not on file Last Filed Vital Signs Vital Sign Reading Time Taken Comments Blood Pressure 115/73 02/23/2022 3:00 PM CDT Pulse 73 02/23/2022 3:00 PM CDT Temperature 36.3 C (97.4 F) 02/23/2022 11:05 AM CDT Respiratory Rate 22 02/23/2022 3:00 PM CDT Oxygen Saturation 99% 02/23/2022 3:00 PM CDT Inhaled Oxygen Concentration - - Weight 55.8 kg (123 lb) 02/23/2022 11:05 AM CDT Height 162.6 cm (5' 4) 02/23/2022 11:05 AM CDT Body Mass Index 21.11 02/23/2022 11:05 AM CDT Plan of Treatment Health Maintenance Due Date Last Done Comments Cervical Cancer Screening Pa p Smear (Age 30 to 64) Every 3 Years 1982 Annual Physical 1985 DTaP, Tdap and Td Vaccines ( 1 - Tdap) 2001 Hepatitis B Vaccines (1 of 3 - 19+ 3-dose series) 2001 Pneumococcal Vaccine: Pediatrics (0 to 5 Years) and At-Risk Patients (6 to 49 Years) (1 of 2 - PCV) 2001 Cervical Cancer Screening Pa p with HPV Testing (Age 30 to 64) Every 5 Years 2012 Cervical Cancer Screening wi th HPV 2012 Mammogram Screening 2022 COVID-19 Vaccine (2 - 2023-2 5 season) 2023 09/28/2020 PHQ-2 (Physician [place]) 05/01/2024 Hepatitis C Completed 11/29/2022, 09/02/2019 HPV Vaccines Aged Out No longer eligi ble based on patient's age to complete this topic Meningococcal B Vaccine Aged Out No l onger eligible based on patient's age to complete this topic Meningococcal Vaccine Aged Out No arnol rosemarie eligible based on patient's age to complete this topic RSV Immunizations Under 20 Months Aged Out No longer eligible b ased on patient's age to complete this topic Procedures Procedure Name Priority Date/Time Associated Diagnosis Comments HEPATITIS C ANTIBODY Routine 11/29/2022 11:36 AM CDT Screening examination for venereal disease from Last 3 Months or Most Recently Relevant to Health Maintenance Results * HEPATITIS C ANTIBODY (11/29/2022 11:36 AM CDT) HEPATITIS C AB NON-REACTI VE NON-REACTI VE 11/29/2022 8:16 PM CDT [facility] 11/29/2022 11:3 6 AM CDT us Antoinettekarina Vasquez DO LABORATORY Final Resul t [facility] [address] [place] [address], from Last 3 Months or Most Recently Relevant to Health Maintenance [place] [address] [place] [address] Care Teams Florist Supplies Salesperson Relationship Specialty Start Date End Date Garfield Patrick MD [address] [place] [address] PCP - General FAMILY PRACTICE 02/14/18
--- OUTSIDE RECORDS SUMMARY | 2024-10-17 15:00 | XMS_ITS | Clinical Summary ---
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
--- OUTSIDE RECORDS SUMMARY | 2024-10-17 15:00 | XMS_ITS | Encounter Summary ---
Author Organization [facility] Address [facility] [place] [address] Care Team Providers Care Cushion Installer Name Role Phone Garfield Patrick MD Primary Care Provider [phone] Encounter Details Date Type Department Care Team (Latest Contact Info) Description 03/06/2018 Abstract [facility] , Generic Conversion, Social History Tobacco Use Types Packs/Day Years Used Date Smoking Tobacco: Never Assessed Comments Unknown Sex and Gender Information Value Date Recorded Sex Assigned at Not on file Legal Sex Female 4:14 PM CDT Gender Identity Not on file Sexual Orientation Not on file documented as of this encounter Plan of Treatment Not on file documented as of this encounter Visit Diagnoses Not on filedocumented in this encounter Additional Health Concerns Infection Onset Date Last Indicated Resolved Time COVID-19 Rule Out 06/05/2020 06/05/2020 06/07/2020 4:41 AM HAND VIOLIN MAKER documented as of this encounter Care Teams Cushion Installer Relationship Specialty Start Date End Date Garfield Patrick MD [address] [place] [id number] PCP - General FAMILY PRACTICE 02/14/18 documented as of this encounter
== END 2024-10-17 16:26 | disposition home or self-care (01) ==
PROVIDERS: Emergency Medicine; Emergency Provider Emergency Medicine; PCP Family Medicine
DX: R07.89 Other chest pain (principal); R94.31 Abnormal electrocardiogram [ECG] [EKG]
CPT/HCPCS: 36415; 71046; 74177; 80053; 81025; 83690; 84484; 85025; 85610; 85730; 93005; 99284; Q9967